=== PATIENT | male | born 1935 | race Caucasian/White ===

== ENCOUNTER → 2016-03-26 | Outpatient (CLI) | payer MEDICARE | LOC: RAD 13:02 | PROVIDERS: ATTEND Family Medicine | DX: M62.81 Muscle weakness (generalized) (principal) | CPT/HCPCS: 70450 ==

== ENCOUNTER 2018-05-02 20:19 | Emergency (ER) | payer MEDICARE ==
[2018-05-02 23:22] LABS: ABSOLUTE BASOPHILS # (AUTO) 0.1 10^3/uL (0.0-0.2); ABSOLUTE LYMPHOCYTES (AUTO) 1.2 10^3/uL (0.5-4.7); ABSOLUTE MONOCYTES (AUTO) 0.4 10^3/uL (0.1-1.4); BASOPHILS % (AUTO) 0.4 % (0-2); HEMATOCRIT 40.7 % (37.9-51.0); HEMOGLOBIN 13.7 g/dL (13.5-17.0); LYMPHOCYTES % (AUTO) 9.2 % (13-45); MEAN CORPUSCULAR HEMOGLOBIN 31.5 pg (27.0-33.4); MEAN CORPUSCULAR HGB CONC 33.7 g/dL (32.0-36.0); MEAN CORPUSCULAR VOLUME 94 fl (80-97); MONOCYTES % (AUTO) 3.4 % (3-13); PLATELET COUNT 204 10^3/uL (150-450); RED BLOOD COUNT 4.34 10^6/uL (4.35-5.55); TOTAL CELLS COUNTED % (AUTO) 100 %; WHITE BLOOD COUNT 12.7 10^3/uL (4.0-10.5)
[2018-05-02 23:39] LABS: ALANINE AMINOTRANSFERASE 32 U/L (21-72); ALBUMIN 4.5 g/dL (3.5-5.0); ALKALINE PHOSPHATASE 93 U/L (38-126); ANION GAP 12 (5-19); ASPARTATE AMINO TRANSFERASE 20 U/L (17-59); BILIRUBIN,DIRECT 0.2 mg/dL (0.0-0.4); BILIRUBIN,TOTAL 0.6 mg/dL (0.2-1.3); BLOOD UREA NITROGEN 29 mg/dL (7-20); CALCIUM 10.4 mg/dL (8.4-10.2); CARBON DIOXIDE 26 mmol/L (22-30); CHLORIDE 105 mmol/L (98-107); GLUCOSE 253 mg/dL (75-110); LIPASE 72.5 U/L (23-300); POTASSIUM 5.2 mmol/L (3.6-5.0); SODIUM 142.9 mmol/L (137-145); TOTAL PROTEIN 7.5 g/dL (6.3-8.2)
[2018-05-03] MEDS ORDERED: NORMAL SALINE 1000 ML 1,000 ML IV ONE (00:14)
[2018-05-03] MEDS ORDERED: ONDANSETRON HCL INJ/PF 4 MG/2 ML SDV IV ONE (00:42)
[2018-05-03] MEDS ORDERED: MORPHINE SULFATE 10 MG/ML INJ IV ONE ×2 (00:42→01:48)
--- NOTE | 2018-05-03 01:29 | RADIOLOGY REPORT (SQ) ---
EXAM DESCRIPTION: CT ABDOMEN PELVIS WITHOUT IV CONTRAST COMPLETED DATE/TME: 05/03/2018 00:15 CLINICAL HISTORY: 82 years, Male, LLQ abd pain COMPARISON: None. TECHNIQUE: 381 Images stored on PACS. All CT scanners at this facility use dose modulation, iterative reconstruction, and/or weight based dosing when appropriate to reduce radiation dose to as low as reasonably achievable (ALARA). [facility]: Dose Right [facility]: CareDose [facility]: Dose Right [facility]: Teradose 4D [facility]: Frontierre LIMITATIONS: None. FINDINGS: Limited evaluation of the lung bases shows calcified pleural plaques and pleural thickening of the lung bases. Large hiatal hernia. Osseous structures of the abdomen/pelvis are grossly intact. Limited evaluation of the liver, spleen, adrenal glands, pancreas, right kidney is unremarkable. The gallbladder is present. There is a nonobstructing 2 mm left renal calculus inferiorly. Mild left hydronephrosis and hydroureter, secondary to an approximately 3.9 mm left UVJ calculus. Surgical clips within the pelvis. Fat-containing inguinal hernias bilaterally. A portion of the urinary bladder herniates into the left inguinal canal. Large amount stool throughout colon. Sigmoid and descending colon diverticulosis without CT evidence for diverticulitis. Normal appendix.. IMPRESSION: Mild left hydronephrosis and hydroureter secondary to a 3.9 mm left UVJ calculus. There is also a nonobstructing 2 mm calculus within the left kidney. Large amount of stool in the colon. Colonic diverticulosis without CT evidence for diverticulitis. Calcified pleural plaques. Large hiatal hernia. Surgical clips in the pelvis. Fat-containing inguinal hernias are noted bilaterally. A portion of the urinary bladder extends into the left inguinal canal. TECHNICAL DOCUMENTATION: Quality ID # [id number]: Final reports with documentation of one or more dose reduction techniques (e.g., Automated exposure control, adjustment of the mA and/or kV according to patient size, use of iterative reconstruction technique) copyright 2011 [employer]- All Rights Reserved
[2018-05-03 01:37] LABS: APPEARANCE,URINE CLEAR; BILIRUBIN,URINE NEGATIVE (NEGATIVE); COLOR,URINE YELLOW; GLUCOSE, URINE >=500 mg/dL (NEGATIVE); KETONES,URINE 20 mg/dL (NEGATIVE); LEUKOCYTE ESTERASE,URINE NEGATIVE (NEGATIVE); NITRITE,URINE NEGATIVE (NEGATIVE); PROTEIN,URINE NEGATIVE (NEGATIVE); URINE SPECIFIC GRAVITY 1.015; UROBILINOGEN,URINE NEGATIVE mg/dL (<2.0)
[2018-05-03] MEDS ORDERED: TAMSULOSIN HCL 0.4 MG CAP.SR.24H PO ONE (01:58)
[2018-05-03] MEDS ORDERED: HYDROCODONE/ACETAMINOPHEN 5-325 MG (6 TAB/ER DISP) PO PRN (01:58)
[2018-05-03 02:27] VITALS: BP 143/70
--- NOTE | 2018-05-03 06:13 | ER Document Report ---
Entered by MARIEL HAHN SCRIBE 05/03/18 0025 Acting as scribe for:JOSÉ MIGUEL FLORES MD ED General - General Chief Complaint: Abdominal Pain Stated Complaint: ABDOMINAL PAIN Time Seen by Provider: 05/03/18 00:04 Primary Care Provider: WILMA PIKE MD [Primary Care Provider] - Follow up as needed Mode of Arrival: Ambulatory Information source: Patient Notes: Patient is an 82 year old male with GERD, type 2 diabetes, hyperlipidema and a history of prostate cancer (prostectomy 1999), kidney stones presents to the emergency department complaining of left lower quadrant abdominal pain onset yesterday around 1530. Patient states the pain is non-radiating and has associated nausea and subjective fevers. Patient states his current symptoms do no feel similar to a previous kidney stone. TRAVEL OUTSIDE OF THE [place] IN LAST 30 DAYS: No - Related Data Allergies/Adverse Reactions: No Known Allergies Allergy (Unverified 06/29/12 06:31) Past Medical History - General Information source: Patient - Social History Smoking Status: Never Smoker Cigarette use (# per day): No Chew tobacco use (# tins/day): No Smoking Education Provided: No Frequency of alcohol use: None Family History: Reviewed & Not Pertinent - Past Medical History Cardiac Medical History: Reports: Hx Hypercholesterolemia Endocrine Medical History: Reports: Hx Diabetes Mellitus Type 2 Renal/ Medical History: Reports: Hx Kidney Stones Malignancy Medical History: Reports Hx Prostate Cancer GI Medical History: Reports: Hx Gastroesophageal Reflux Disease Musculoskeletal Medical History: Reports Hx Arthritis Past Surgical History: Reports: Other - Right urterscopy stone extaction 2013 - Immunizations Hx Diphtheria, Pertussis, Tetanus Vaccination: No Review of Systems - Review of Systems Constitutional: No symptoms reported EENT: No symptoms reported Cardiovascular: No symptoms reported Respiratory: No symptoms reported Gastrointestinal: See HPI, Abdominal pain, Nausea Genitourinary: No symptoms reported Male Genitourinary: No symptoms reported Musculoskeletal: No symptoms reported Skin: No symptoms reported Hematologic/Lymphatic: No symptoms reported Neurological/Psychological: No symptoms reported -: Yes All other systems reviewed and negative Physical Exam - Vital signs Vitals: Temp Pulse Resp BP Pulse Ox 98.4 F 81 20 158/72 H 98 05/02/18 20:37 05/02/18 20:37 05/02/18 20:37 05/02/18 20:37 05/02/18 20:37 - Notes Notes: GENERAL: Alert, interacts well. No acute distress. HEAD: Normocephalic, atraumatic. EYES: Pupils equal, round, and reactive to light. Extraocular movements intact. ENT: Oral mucosa moist, tongue midline. NECK: Full range of motion. Supple. Trachea midline. LUNGS: Clear to auscultation bilaterally, no wheezes, rales, or rhonchi. No respiratory distress. HEART: Regular rate and rhythm. No murmurs, gallops, or rubs. ABDOMEN: Soft, LLQ and left pelvic region tender to palpation. Non-distended. Bowel sounds present in all 4 quadrants. EXTREMITIES: Moves all 4 extremities spontaneously. NEUROLOGICAL: Alert and oriented x3. Normal speech. PSYCH: Normal affect, normal mood. SKIN: Warm, dry, normal turgor. No rashes or lesions noted. Course - Vital Signs Vital signs: Temp Pulse Resp BP Pulse Ox 98.4 F 81 21 H 143/70 H 94 05/02/18 20:37 05/02/18 20:37 05/03/18 02:20 05/03/18 02:20 05/03/18 02:20 - Laboratory Result Diagrams: 05/02/18 23:11 05/02/18 23:11 Laboratory results interpreted by me: 05/02/18 05/02/18 05/03/18 23:11 23:11 01:06 WBC 12.7 H RBC 4.34 L Seg Neutrophils % 87.0 H Lymphocytes % 9.2 L Absolute Neutrophils 11.0 H Potassium 5.2 H BUN 29 H Creatinine 1.61 H Est GFR ( Amer) 50 L Est GFR (Non-Af Amer) 41 L Glucose 253 H Calcium 10.4 H Urine Glucose (UA) >=500 H Urine Ketones 20 H Urine Blood MODERATE H - Diagnostic Test Radiology reviewed: Image reviewed, Reports reviewed - Mild hydroureter and hydronephrosis on the left with a 3.9 mm left UVJ stone - EKG Interpretation by Me EKG shows normal: Sinus rhythm, [place], Intervals, QRS Complexes, ST-T Waves Rate: Normal - 75 Rhythm: NSR, APC's Voltage: Decreased voltage Discharge - Discharge Clinical Impression: Left ureteral stone, Hyperkalemia Disposition: HOME, SELF-CARE I personally performed the services described in the documentation, reviewed and edited the documentation which was dictated to the scribe in my presence, and it accurately records my words and actions.
--- NOTE | 2018-05-03 07:41 | EKG REPORT ---
SEVERITY:- ABNORMAL ECG - SINUS RHYTHM MULTIPLE ATRIAL PREMATURE COMPLEXES LOW VOLTAGE IN FRONTAL LEADS : Confirmed by: Brian Sapp MD 03-May-2018 07:40:47
== END 2018-05-03 02:27 | disposition home or self-care (01) ==
LOC: ER 20:19
DX: N13.2 Hydronephrosis with renal and ureteral calculous obstruction (principal); E87.5 Hyperkalemia; I49.1 Atrial premature depolarization; R10.32 Left lower quadrant pain; R11.0 Nausea; E11.9 Type 2 diabetes mellitus without complications; Z85.46 Personal history of malignant neoplasm of prostate
CPT/HCPCS: 93005; 96376; 99284; 96361; 96374; 96375; 36415; 83690; 85025; 80053; 81001; 74176; 93010; J2270; A9270 ×2; J2405; J7030